=== PATIENT | male | born 1995 | race African-American/Black ===

== ENCOUNTER 2017-02-03 14:22 | Emergency (ER) | payer OTHER ==
--- NOTE | 2017-02-03 15:16 | ER Document Report ---
HPI - HPI Patient complains to provider of: toothache Pain Level: 3 Context: 21 yo male c/o pain and swelling to right lower jaw x 2 days. + hx/o of cracked tooth. Associated Symptoms: None Exacerbated by: Denies Relieved by: Denies Similar symptoms previously: Yes Recently seen / treated by doctor: No - ROS Systems Reviewed and Negative: Yes All other systems reviewed and negative - REPRODUCTIVE Reproductive: DENIES: : - DERM Skin Color: Normal Past Medical History - General Information source: Patient - Social History Smoking Status: Current Some Day Smoker Frequency of alcohol use: Occasional Drug Abuse: None Lives with: Family Family History: None Patient has suicidal ideation: No Patient has homicidal ideation: No - Medical History Medical History: Negative Renal/ Medical History: Denies: Hx Peritoneal Dialysis Vertical Provider Document - CONSTITUTIONAL Agree With Documented VS: Yes - INFECTION CONTROL TRAVEL OUTSIDE OF THE [place] IN LAST 30 DAYS: No - HEENT HEENT: Atraumatic Mouth Diagram: 1 - gingival pain. no abscess appreciated Notes: + right mandibular swelling. - NECK Neck: Normal Inspection, Supple - RESPIRATORY Respiratory: Breath Sounds Normal, No Respiratory Distress O2 Sat by Pulse Oximetry: 100 - CARDIOVASCULAR Cardiovascular: Regular Rate, Regular Rhythm - GI/ABDOMEN Gastrointestinal: Abdomen Soft, Abdomen Non-Tender - NEURO Level of Consciousness: Awake, Alert, Appropriate - DERM Integumentary: Warm, Dry, No Rash Course - Vital Signs Vital signs: Temp Pulse Resp BP Pulse Ox 99.4 F 70 14 152/79 H 100 02/03/17 14:46 02/03/17 14:46 02/03/17 14:46 02/03/17 14:46 02/03/17 14:46 Discharge - Discharge Clinical Impression: Infection of tooth, Elevated blood pressure reading Condition: Stable Disposition: HOME, SELF-CARE Instructions: Penicillin V K (OM), Oral Narcotic Medication (OM), Toothache ( OM) Additional Instructions: You have been prescribed an oral antibiotic and pain medication for your dental infection. Please take medication as prescribed Follow up with Dental for further evaluation and treatment Prescriptions: Oxycodone HCl/Acetaminophen [Percocet 5-325 mg Tablet] 1 - 2 tab PO ASDIR PRN # 15 tablet PRN Reason: Penicillin V Potassium [Penicillin Vk 500 mg Tablet] 500 mg PO QID #28 tablet
[2017-02-03] MEDS ORDERED: PENICILLIN V POTASSIUM 500 MG TABLET PO ONE (15:20)
[2017-02-03 15:43] VITALS: BP 136/89
== END 2017-02-03 15:40 | disposition home or self-care (01) ==
LOC: ER 14:22
DX: K04.7 Periapical abscess without sinus (principal); R03.0 Elevated blood-pressure reading, without diagnosis of hypertension; F17.200 Nicotine dependence, unspecified, uncomplicated
CPT/HCPCS: 99282